=== PATIENT | female | born 1945 | race Caucasian/White ===

== ENCOUNTER 2021-04-07 09:54 | Outpatient (CLI) | payer MEDICARE, BC | END 2021-04-07 09:55 | disposition home or self-care (01) | LOC: CSHMAMMO 09:54 | PROVIDERS: ATTEND Family Medicine | DX: Z12.31 Encounter for screening mammogram for malignant neoplasm of breast (principal); Z80.3 Family history of malignant neoplasm of breast | CPT/HCPCS: 77063; 77067 ==

== ENCOUNTER 2022-04-22 09:57 | Outpatient (CLI) | payer MEDICARE, BC | END 2022-04-22 09:58 | disposition home or self-care (01) | LOC: CSHMAMMO 09:57 | PROVIDERS: ATTEND Family Medicine | DX: Z12.31 Encounter for screening mammogram for malignant neoplasm of breast (principal); Z80.3 Family history of malignant neoplasm of breast | CPT/HCPCS: 77063; 77067 ==

== ENCOUNTER 2023-06-09 13:47 | Outpatient (CLI) | payer MEDICARE, BC | END 2023-06-09 13:48 | disposition home or self-care (01) | LOC: CSHMAMMO 13:47 | PROVIDERS: ATTEND Family Medicine | DX: Z12.31 Encounter for screening mammogram for malignant neoplasm of breast (principal); Z80.3 Family history of malignant neoplasm of breast | CPT/HCPCS: 77063; 77067 ==